=== PATIENT | male | born 1950 | race Caucasian/White ===

== ENCOUNTER 2024-07-11 06:43 | Day surgery (SDC) | payer MEDICARE, OTHER, SELFPAY ==
[2024-07-11 07:34] VITALS: BMI 27.8
--- NOTE | 2024-07-11 08:04 | ITS.CL.IMPLP ---
Sand Buffer - Implant Loop
Implant Loop
Procedure Report:
Primary Physician: Vi Castle MD
Primary Mechanical Developer Prover: Gregory Riley DO
Procedure Date: 07/11/2024
Procedure: Placement of a loop recorder.
History/Indication:
1. See office H&P for complete history.
2. Patient is a pleasant 73-year-old male with a past medical history significant for mixed hyperlipidemia and CVA without clear etiology. Patient to undergo ILR implant with history of stroke and for longitudinal arrhythmia surveillance due to
concern for AF.
Method:
After informed consent was obtained, the patient was brought to the EP laboratory holding area in a fasting, non-sedated state. Peripheral access was established. The left chest was prepared and draped in a sterile fashion. A 'time out' was
called. Local anesthesia was injected in the subcutaneous tissue. The ILR was injected under the skin. Topical skin adhesive was applied. Following the procedure, the patient was taken to the recovery area in stable condition. No complications
were noted.
Device Data:
[employer]; Model# LINQ; Serial# [id number]
Conclusion:
Successful placement of a loop recorder.
Recommendations:
1. Follow-up will be arranged in the [facility] in 7-10 days for wound check.
2. Routine ILR care.
Yonny Puentes DO, [facility]
Clinical Cardiac Dry Finisher
cc: Vi Castle MD; Gregory Riley DO
== END 2024-07-11 08:30 | disposition home or self-care (01) ==
LOC: CATH 06:43
PROVIDERS: ATTENDING PHYSICIAN Internal Medicine Cardiovascular Disease; FAMILY PHYSICIAN Family Medicine; OTHER PHYSICIAN Nuclear Medicine Nuclear Cardiology
DX: Z09 Encounter for follow-up examination after completed treatment for conditions other than malignant neoplasm (principal); E78.2 Mixed hyperlipidemia; Z86.73 Personal history of transient ischemic attack (TIA), and cerebral infarction without residual deficits
CPT/HCPCS: 33285; C1764

== ENCOUNTER → 2024-07-16 11:27 | Outpatient (REF) | payer MEDICARE, OTHER, SELFPAY | LOC: HWRCS 11:27 | PROVIDERS: ATTENDING PHYSICIAN Nuclear Medicine Nuclear Cardiology; FAMILY PHYSICIAN Family Medicine | DX: R07.89 Other chest pain (principal) | CPT/HCPCS: 78452; 93017; A9500 ==

== ENCOUNTER → 2024-07-26 12:41 | Outpatient (REF) | payer MEDICARE, OTHER, SELFPAY | LOC: RCS 12:41 | PROVIDERS: ATTENDING PHYSICIAN Nuclear Medicine Nuclear Cardiology; FAMILY PHYSICIAN Family Medicine | DX: R07.89 Other chest pain (principal) | CPT/HCPCS: 93306 ==